=== PATIENT | male | born 2005 | race Two or more races ===

== ENCOUNTER 2024-02-10 07:10 | Day surgery (SDC) | payer MEDICAID, SELFPAY ==
--- NOTE | 2024-02-07 06:28 | EKG_ITS ---
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
[2024-02-07 10:44] VITALS: BMI 21.8
[2024-02-07 11:35] LABS: Collection Type, Urine Clean Catch; Squamous Epithelial Cell,Urine 0 /hpf (0-5)
[2024-02-07 11:48] LABS: Bilirubin,Urine Negative (Negative); Blood,Urine Negative (Negative); Clarity,Urine Clear (Clear/Hazy); Color,Urine Lt-Yellow (Lt Yel-Yel); Glucose, Urine Negative (Negative); Ketones,Urine Negative (Negative); Leukocyte Esterase,Urine Negative (Negative); Nitrite,Urine Negative (Negative); Protein,Urine Negative (Neg - Trace); RBC,Urine 3 /hpf (0-3); Specific Gravity,Urine 1.021 (1.001-1.035); Urobilinogen,Urine Negative mg/dL (0.0-1.0); WBC,Urine 1 /hpf (0-5)
[2024-02-07 11:48] LABS: Basophils % (Auto) 1 % (0-2.5); Eosinophils # (Auto) 0.4 Thou/mm3 (0.0-0.5); Eosinophils % (Auto) 7 % (0-10); Hematocrit 45.7 % (41.0-53.0); Hemoglobin 16.4 g/dL (13.5-16.0); Immature Granulocytes % (Auto) 0 % (0-0); Immature Granulocytes Auto 0.01 Thou/mm3 (0.00-0.00); Lymphocytes # (Auto) 1.7 Thou/mm3 (1.0-5.0); Lymphocytes % (Auto) 32 % (10-50); Mean Corpuscular HGB Conc 35.9 g/dl (31.0-37.0); Mean Corpuscular Hemoglobin 31.5 pg (25.0-35.0); Mean Corpuscular Volume 88 fL (80-100); Monocytes # (Auto) 0.4 Thou/mm3 (0.0-0.8); Monocytes % (Auto) 7 % (0-12); Neutrophils # (Auto) 2.9 Thou/mm3 (1.8-7.7); Neutrophils % (Auto) 54 % (37-80); Nucleated Red Blood Cell % 0 /100 WBC (0); Platelet Count 185 Thou/mm3 (140-440); RDW Standard Deviation 41.5 fL (35.1-43.9); White Blood Count 5.5 Thou/mm3 (4.5-11.0)
[2024-02-07 11:56] LABS: INR 1.1 (0.9-1.3); Partial Thromboplastin Time 28.7 Seconds (22.0-36.0); Prothrombin Time 12.4 Seconds (9.0-12.2)
[2024-02-07 12:02] LABS: Alanine Aminotransferase 27 U/L (10-49); Albumin, Serum 4.9 gm/dL (3.5-5.0); Alkaline Phosphatase 84 U/L (46-116); Anion Gap 7 (7-16); Aspartate Amino Transferase 14 U/L (0-34); BUN/Creatinine Ratio 14 Ratio (12-20); Bilirubin,Total 1.2 mg/dL (0.3-1.2); Blood Urea Nitrogen 14 mg/dL (9-23); Calcium 10.1 mg/dL (8.3-10.6); Calcium (Corrected) 10.1 mg/dL (8.5-10.1); Carbon Dioxide 25.8 mMol/L (20.0-31.0); Chloride 106 mMol/L (98-107); Estimated Creatinine Clearance 115.9 mL/min (>60); Globulin 2.4 gm/dL (2.3-3.5); Glucose 94 mg/dL (74-106); Osmolality,Calculated 278 (275-295); Sodium 139 mMol/L (136-145); Total Protein 7.3 gm/dL (5.7-8.2); eGFR > 60 See Note
--- NOTE | 2024-02-07 14:47 | SUR.PREOP ---
Pt notified to come in at 729 for surgery.
--- NOTE | 2024-02-07 14:59 | PD.SURHP ---
HPI Date of Admission February 10, 2024 Chief Complaint Chief Complaint: Large lipoma right arm HPI This 18-year-old male is brought to the hospital for excision of a large lipoma of the right that is growing in size and giving him significant pain is requesting removal of the lipoma. Risk benefits and alternatives were discussed with the patient and informed consent is obtained. Past Medical History Past Medical History NEUROLOGIC: Negative Neurological Disorders CARDIAC: Negative Cardiac Disorders or Congestive Heart Failure RESPIRATORY: Negative Respiratory Disorders or Chronic Obstructive Pulmonary Disease (COPD) GASTROINTESTINAL: Negative Gastrointestinal Disorders or Hepatitis GENITOURINARY: Negative Genitourinary Disorders or Renal Disease MUSCULOSKELETAL: Negative Musculoskeletal Disorders ENT: Negative History of ENT Problems ENDOCRINE: Positive Endocrine Disorders and Hyperthyroidism; Negative Diabetes Mellitus Type 1 or Diabetes Mellitus Type 2 HEMATOLOGIC: Negative Blood Disorders OTHER HISTORY: Negative Autoimmune Disease, Anesthesia Reactions or Cancer Family History FAMILY HISTORY: Positive Family Cardiac Disorders and Family Surgery; Negative Family Psychiatric Problems, Family Respiratory Disorders, Family Gastrointestinal Problems, Family Genitourinary Problems, Family Endocrine Disorders, Family Reproductive Disorders, Family Musculoskeletal Disorders, Family Cancer or Family Anesthesia Reaction Social History SMOKING STATUS: Never smoker Travel History EBOLA RISK: No Meds Home Medications and Allergies Home Medications ?Medication ?Instructions ?Recorded ?Confirmed ?Type methimazole 5 mg tablet 5 mg PO QDAY 02/07/24 02/07/24 History Allergies Allergy/AdvReac Type Severity Reaction Status Date / Time No Known Allergies Allergy Verified 02/07/24 10:41 Exam Constitutional Constitutional: no acute distress Routine HEENT Exam Head: Present normocephalic Eye: Present EOMI and PERRL ENT: Present mucous membranes moist Routine Neck Exam Neck: Present supple and trachea midline Routine Chest/Breast/Axilla Exam Chest wall: Absent tenderness or mass Routine Respiratory Exam Respiratory: Present chest non-tender, lungs clear, normal breath sounds and no resp distress; Absent respiratory distress Routine Cardiovascular Exam Cardiovascular: Present RRR Routine Abdominal Exam Abdominal: Present soft and normoactive bowel sounds Routine Extremities Exam Extremities: Present full ROM Comments: Right arm has a lipoma that measures about 10 cm x 7 cm with 3 cm. Routine Skin Exam Skin: Present intact, dry and warm Routine Neurological Exam Neurological: Present alert, oriented X3 and CN II-XII intact Routine Psychiatric Exam Psychiatric: Present normal affect and normal thought process Results Results: Laboratory Laboratory results: results reviewed Assessment & Plan Problem List (1) Lipoma of right upper extremity: Status: Acute Plan Excision of the lipoma of the right arm. Risk benefits alternatives were discussed with the patient and informed consent was obtained. Quality Measures Quality Measures none
[2024-02-10] VITALS (7 sets, daily range): BP systolic 114–140; BP diastolic 60–85; PULSE 67–97; RESP 13–20; TEMP 36.6–36.9; O2SAT 96–99; BMI 20.7
--- NOTE | 2024-02-10 07:36 | CHAP ---
Patient expressed gratitude for prayer before their procedure.
--- NOTE | 2024-02-10 10:29 | SUR.PHASEII ---
1029 Patient arrived to recovery awake and alert, breathing unlabored, vital signs stable, denies pain, dressing intact to upper right arm; sutures, telfa, fluffs, kerlix roll, tatiana wraps, no bleeding noted, lung sounds clear upon auscultation, bilateral radial pulses present when palpated, report received from Dale MALONE and Dr. Read
--- NOTE | 2024-02-10 10:50 | PD.SUROPNT ---
Date of Procedure 02/10/24 Pre Op Diagnosis Mass in the right lower arm. Post Op Diagnosis Same. Procedure Excision of a mass in the right measuring about 5.5 cm. On January on 02/10/2024 Advancement flaps to cover the defect in the skin measuring about 20 cm?. Findings This patient has a hard mass in the lateral aspect of the right lower arm and the mass is eroding through the skin now there is hyperemia on the skin. It is rapidly growing. Upon exploration it was found to be a hard mass. There appeared to have some calcifications to it. Procedure Description This patient is seen in the preoperative area the risk benefits and alternatives were discussed with the patient and informed consent is obtained. The site and site is marked for this patient. After that he was taken to the operating room and then positioned in the left lateral position on a beanbag. The patient is given MAC anesthesia with propofol and right arm is prepped and draped in usual manner. Local anesthesia 1% lidocaine with epinephrine is infiltrated and a wide field block is achieved. A curvilinear elliptical transverse incision is made around the mass which is eroding out into the skin and deepened through the layers of skin and subcutaneous tissue. Mass is below the fascia and the fascia is incised. Hemostasis is achieved and the mass is removed in its entirety with an ellipse of skin attached to it. After these upper and lower flaps are developed as there is a large skin defect. Hemostasis is achieved and then the fascia is approximated by 3-0 Vicryl interrupted sutures. Upper and lower undermining is carried out to about 4 to 5 cm and the flaps were mobilized as advancement flaps. The fascia was approximated by 3-0 Vicryl interrupted sutures and the subcutaneous tissues approximated by 3-0 Vicryl interrupted sutures and skin by 4-0 nylon interrupted sutures. Kerlex and Mario wrap dressings are applied. Patient tolerated the procedure well. Anesthesia MAC Drains None. Implants None. Pathology / specimen Other (Mass right arm) Estimated Blood Loss 10 Condition Stable Disposition PACU Surgeon Jluis Valdivia MD Surgical Staff Operation Date: 02/10/24 09:30 Case Staff Anesthesiologist: Arya Read RN First Assistant: Ruthy lAex RN building stonecutter Sally hand frame surgical elastic knitter
--- NOTE | 2024-02-10 11:26 | SUR.PHASEII ---
1126 Patient meets discharge criteria from recovery, awake and alert, breathing unlabored, vital signs stable, denies pain, dressing intact; no bleeding noted, patient ate a jello and drinking apple juice; tolerating well, denies nausea, patient able to dress himself into his clothing, discharge instructions given to patients parents and patient with the assistance of the telephone american sign language interpreter Lorene ID# [id number], patients mother signed discharge instructions. Patient given all his belongings prior to discharge, transported via wheelchair and left in a private vehicle
== END 2024-02-10 11:26 | disposition home or self-care (01) ==
PROVIDERS: PCP Nurse Practitioner; Referring Provider Specialist; Visit Provider Specialist
PROC: (CPT 24073; principal; 2024-02-10 09:30)
DX: D23.61 Other benign neoplasm of skin of right upper limb, including shoulder (principal); Z01.810 Encounter for preprocedural cardiovascular examination
CPT/HCPCS: 24073; 36415; 80053; 81001; 85025; 85610; 85730; 93005; A4217; A4649; J2250; J2704; J3010; J3490